=== PATIENT | female | born 1960 | race Caucasian/White ===

== ENCOUNTER 2018-02-05 06:06 | Day surgery (SDC) | END 2018-02-05 10:16 | disposition home or self-care (01) ==

== ENCOUNTER 2018-10-29 13:11 | Emergency (ER) | payer OTHER ==
[~2018-10-29] VITALS: Ht 172.7 cm; Wt 75.6 kg
[~2018-10-29 13:11] MED LIST: CRUT1EAC7 MC; MULTI PO
[2018-10-29 13:14] VITALS: Ht 172.7 cm; Wt 75.6 kg
[2018-10-29] MEDS ORDERED: SOD CHLORIDE 0.9% 1,000 ML IV STA (13:28)
[2018-10-29] MEDS ORDERED: SOD CHLORIDE 0.9% 100 ML ONE (14:33)
[2018-10-29] MEDS ORDERED: IOHEXOL 300MG/ML 150 ML BTL ONE (14:33)
--- NOTE | 2018-10-29 15:35 | ERD ---
ER Documentation Chief Complaint Chief Complaint MD ref for CT scan: bilat neck pain x1wk; hx of lymphoma HPI 58-year-old female with history of lymphoma is here come complaining of bilateral neck pain is anterior and intermittent for the past week. Her doctor sent her here to get a CT scan to make sure she does not have a recurrence of lymphoma. She had no fever. No difficulty eating or swallowing. No trauma. ROS All systems reviewed and are negative except as per history of present illness. Medications Home Meds Active Scripts Crutch (Crutch) 1 Each Each, EACH , #1 Prov:YOBANY WINTERS DPM 02/05/18 Reported Medications Multivitamins* (Theragran*) 1 Tab Tab, 1 TAB PO DAILY, TAB 02/05/18 Allergies Allergies: Coded Allergies: No Known Allergy (Unverified , 02/05/18) PMhx/Soc History of Surgery: No Anesthesia Reaction: No Hx Neurological Disorder: No Hx Respiratory Disorders: Yes (pna) Hx Cardiac Disorders: No Hx Psychiatric Problems: No Hx Miscellaneous Medical Probl: Yes (lymphoma, bone marrow transplant) Hx Alcohol Use: Yes (socially) Hx Substance Use: No Hx Tobacco Use: No FmHx Family History: No diabetes Physical Exam Vitals Vital Signs Date Temp Pulse Resp B/P (MAP) Pulse Ox O2 O2 Flow FiO2 Time Delivery Rate 10/29/18 98.7 75 16 119/56 97 13:14 (77) Physical Exam INITIAL VITAL SIGNS: Reviewed by me GENERAL: Awake, alert and oriented x 4, well appearing, nontoxic, speaking in full sentences. No acute distress HEAD: Atraumatic NECK: Supple. No masses. Full range of motion. No meningismus. No midline tenderness. EYES: EOMI. PERRL. THROAT: No tonilar erythema or edema. No exudates. Uvula midline. No kissing tonsils. RESPIRATORY: Clear to auscultation bilaterally. Symmetric chest wall rise. No wheezing or rales. No accessory muscle use. CV: Regular rate and rhythm. No murmurs, rubs, or gallops. Result Diagram: 10/29/18 1345 10/29/18 1345 Results 24 hrs Laboratory Tests Test 10/29/18 13:45 White Blood Count 5.9 10^3/ul Red Blood Count 4.48 10^6/ul Hemoglobin 12.3 g/dl Hematocrit 38.9 % Mean Corpuscular Volume 86.8 fl Mean Corpuscular Hemoglobin 27.5 pg Mean Corpuscular Hemoglobin Concent 31.6 g/dl Red Cell Distribution Width 13.8 % Platelet Count 223 10^3/UL Mean Platelet Volume 10.0 fl Immature Granulocytes % 0.200 % Neutrophils % 64.3 % Lymphocytes % 24.0 % Monocytes % 7.7 % Eosinophils % 2.6 % Basophils % 1.2 % Nucleated Red Blood Cells % 0.0 /100WBC Immature Granulocytes # 0.010 10^3/ul Neutrophils # 3.8 10^3/ul Lymphocytes # 1.4 10^3/ul Monocytes # 0.5 10^3/ul Eosinophils # 0.2 10^3/ul Basophils # 0.1 10^3/ul Nucleated Red Blood Cells # 0.0 10^3/ul Sodium Level 139 mmol/L Potassium Level 4.0 mmol/L Chloride Level 106 mmol/L Carbon Dioxide Level 27 mmol/L Anion Gap 6 Blood Urea Nitrogen 16 mg/dl Creatinine 0.71 mg/dl Est Glomerular Filtrat Rate mL/min > 60 mL/min Glucose Level 103 mg/dl Calcium Level 9.4 mg/dl Current Medications Medications Dose Sig/Daniel Start Time Status Last (Trade) Ordered Route PRN Stop Time Admin Dose Reason Admin Sodium 1,000 ml @ Q1H STAT 10/29/18 DC 10/29/18 Chloride 1,000 mls/hr IV 13:28 10/29/18 13:47 14:27 IV Flush 10 ml STK-MED 10/29/18 DC (NS 10 ml) ONCE .ROUTE 14:33 10/29/18 14:34 Sodium 100 ml @ ud STK-MED 10/29/18 DC Chloride ONCE .ROUTE 14:33 10/29/18 14:34 Iohexol 150 ml STK-MED 10/29/18 DC (Omnipaque ONCE .ROUTE 14:33 10/29/18 300mg/ ml) 14:34 Procedures/MDM Laboratory analysis shows no evidence of acute emergent abnormality. No evidence of significant leukocytosis suggesting systemic infection or severe anemia. No evidence of acute renal or liver failure, no evidence of severe alkalosis or acidosis. CT is nonacute. Copies of labs and CT given to patient so she can follow-up with primary care. Patient counseled regarding my diagnostic impression and care plan. Prior to discharge all questions answered. Pt agrees with treatment plan and understands strict return precautions. Pt is instructed to follow up with primary care provider within 24-48 hours. Precautionary instructions provided including instructions to return to the ER if not improving or for any worsening or changing symptoms or concerns. Departure Diagnosis: Primary Impression: Neck pain Condition: Stable Patient Instructions: Neck Pain, No Trauma Additional Instructions: Call your primary care doctor TOMORROW for an appointment during the next 1-2 days.See the doctor sooner or return here if your condition worsens before your appointment time. HAWA KAN PA-C Oct 29, 2018 15:35
[2018-10-29 16:14] VITALS: BP 104/58; PULSE 64; RESP 18
== END 2018-10-29 16:15 | disposition home or self-care (01) ==
LOC: FTE 13:11
DX: M54.2 Cervicalgia (principal)
CPT/HCPCS: 70491; 80048; 85025; 96360; J7030; Q9967; Z7502; Z7610